=== PATIENT | male | born 2000 | race Caucasian/White ===

== ENCOUNTER 2021-08-22 13:36 | Emergency (ER) | payer OTHER ==
[2021-08-22] MEDS ORDERED: Diphtheria,Pertussis(Acell),Tetanus Vaccine 0.5 ML Syringe IM ONE (13:48)
[2021-08-22] MEDS ORDERED: Lidocaine 1% 5 ML VIAL INJECT ONE (13:48)
== END 2021-08-22 14:27 | disposition home or self-care (01) ==
LOC: MW.ED 13:36
DX: S61.210A Laceration without foreign body of right index finger without damage to nail, initial encounter (principal); I10 Essential (primary) hypertension; Z23 Encounter for immunization; Z88.0 Allergy status to penicillin; W26.8XXA Contact with other sharp object(s), not elsewhere classified, initial encounter
CPT/HCPCS: 12002; 90471; 90715; 99282; 99282-25